=== PATIENT | female | born 1960 ===

== ENCOUNTER 2019-09-29 18:31 | Inpatient (IN) | payer MEDICAID, OTHER ==
[~2019-09-29] VITALS: Ht 170.2 cm; Wt 140.0 kg
--- NOTE | 2019-09-29 19:08 | NUR ---
daughter georgina [phone]
[2019-09-29] MEDS ORDERED: ACETAMINOPHEN 500 MG TABLET PO ONE (19:30)
[2019-09-29] MEDS ORDERED: ACETAMINOPHEN 500 MG TABLET ONE (19:35)
--- NOTE | 2019-09-29 19:35 | NUR ---
Pt here for new onset of cough fever and possibly reoccuring pneumonia. Pt reports she does not use oxygen and is requiring 4l at this time. Pt does not have hx of resp diseases. Pts lung were clear. Pt has bilateral eye draiange. Pt connected to monitors and call light in reach.
[2019-09-29 19:51] LABS: ALANINE AMINOTRANSFERASE 21 U/L (12-78); ALBUMIN 2.5 g/dL (3.4-5.0); ANION GAP 6 mmol/L (5-15); CHLORIDE 106 mmol/L (98-107)
[2019-09-29 19:53] LABS: ALKALINE PHOSPHATASE 151 U/L (45-117); BILIRUBIN,TOTAL 2.1 mg/dL (0.2-1.0); TOTAL PROTEIN 7.7 g/dL (6.4-8.2)
[2019-09-29 20:25] LABS: MEAN CORPUSCULAR HEMOGLOBIN 31.5 pg (27.0-34.8); MEAN CORPUSCULAR HGB CONC 32.5 g/dL (32.4-35.8); MEAN CORPUSCULAR VOLUME 96.9 fL (80-100); MEAN PLATELET VOLUME 9.9 fL (7.4-10.4); PLATELET COUNT 195 x10^3/uL (130-400); RED BLOOD COUNT 4.51 x10^6/uL (3.82-5.3)
[2019-09-29] MEDS ORDERED: AZITHROMYCIN 500 MG in SODIUM CHLORIDE 0.9% 250 ML IV ONE (20:30)
[2019-09-29] MEDS ORDERED: CEFTRIAXONE PMX 1GM/50ML 50 ML IV ONE (20:30)
[2019-09-29 20:32] LABS: MD YES
[2019-09-29 20:35] LABS: BANDS%(MANUAL) 3 % (0-7); BASOS% (MANUAL) 1 % (0-1); LYMPH#(MANUAL) 3.42 x10^3/uL (1-3.4); LYMPHS% (MANUAL) 17 % (22-44); MONOS#(MANUAL) 2.21 x10^3/uL (0.3-2.7); MONOS% (MANUAL) 11 % (2-9); SEG#(MANUAL) 13.67 x10^3/uL (1.8-6.8); SEGS% (MANUAL) 68 % (42-75)
[2019-09-29 20:38] LABS: <PLATELET ESTIMATE> ADEQUATE; <PLT MORPHOLOGY> NORMAL PLT MORPH; POLYCHROMASIA 1+; TOXIC GRAN 1+
--- NOTE | 2019-09-29 20:42 | NUR ---
pT TO CT, CT INFORMED PT IS COVID 19 RULE OUT.
[2019-09-29] MEDS ORDERED: CEFTRIAXONE PMX 1GM/50ML 50 ML ONE (20:46)
--- NOTE | 2019-09-29 21:30 | NUR ---
Pt medicated per emar, blood cultures collected. Pt placed back on monitors.
[2019-09-29] MEDS ORDERED: LISI-167 PO (22:16)
[2019-09-29] MEDS ORDERED: ASPI-515 PO (22:16)
--- NOTE | 2019-09-29 22:16 | NUR ---
Report called to [facility]
[2019-09-29 22:36] VITALS: BP 137/71
[2019-09-30 00:28] VITALS: BP 143/86
[2019-09-30] MEDS ORDERED: GUAIFENESIN/DM 200-20MG, 10ML UDC PO PRN (00:30)
[2019-09-30] MEDS ORDERED: LIDODERM 5% PATCH TD PRN (00:30)
[2019-09-30] MEDS ORDERED: hydrALAzine 20 MG/ML, 1ML IVPush PRN (00:30)
[2019-09-30] MEDS ORDERED: MELATONIN 5 MG TABLET PO PRN (00:30)
[2019-09-30] MEDS ORDERED: methylPREDNISolone SOD SUCC 40 MG/ML IVPush SCH (00:30)
[2019-09-30] MEDS ORDERED: ACETAMINOPHEN 325 MG TABLET PO PRN (00:30)
[2019-09-30] MEDS ORDERED: DOCUSATE 100 MG CAPSULE PO PRN (00:30)
[2019-09-30] MEDS: ENOXAPARIN 30 MG/0.3 ML SQ SCH ×2 (00:30→11:56)
[2019-09-30 09:15] VITALS: BP 138/69
[2019-09-30] MEDS: CEFTRIAXONE PMX 2GM/50ML 50 ML IV SCH (09:15)
[2019-09-30] MEDS: ZINC SULFATE 220 MG CAPSULE PO SCH (09:15)
[2019-09-30] MEDS: CHOLECALCIFEROL 1,000 UNIT TABLET PO SCH (09:15)
[2019-09-30] MEDS: LISINOPRIL 40 MG TABLET PO SCH (09:15)
[2019-09-30] MEDS: MELATONIN 5 MG TABLET PO SCH ×2 (09:15→20:25)
[2019-09-30] MEDS: ASPIRIN 81 MG TABLET EC PO SCH (09:15)
[2019-09-30] MEDS: DEXAMETHASONE 1 MG TABLET PO SCH ×2 (09:15→16:42)
[2019-09-30] MEDS ORDERED: CEFTRIAXONE PMX 1GM/50ML 50 ML IV SCH (09:30)
[2019-09-30] MEDS: ASCORBATE SODIUM 3,000 MG in SODIUM CHLORIDE 0.9% 250 ML IVPB SCH ×2 (11:56→18:40)
[2019-09-30] MEDS ORDERED: LIDODERM REMOVE PATCH NOTE XX PRN (12:00)
[2019-09-30] MEDS ORDERED: ENOXAPARIN 40 MG/0.4 ML SQ SCH (15:00)
[2019-09-30 16:44] VITALS: BP 118/76
[2019-09-30] MEDS: ENOXAPARIN 40 MG/0.4 ML SQ SCH (20:25)
[2019-09-30] MEDS: AZITHROMYCIN 500 MG in SODIUM CHLORIDE 0.9% 250 ML IV SCH ×2 (20:25→20:47)
[2019-09-30] MEDS: ENOXAPARIN 100 MG/ML SQ SCH (20:26)
[2019-09-30 20:32] VITALS: BP 118/78
[2019-10-01] MEDS: ASCORBATE SODIUM 3,000 MG in SODIUM CHLORIDE 0.9% 250 ML IVPB SCH ×3 (00:12→12:15)
[2019-10-01 00:15] VITALS: BP 119/79
[2019-10-01 05:49] LABS: MEAN CORPUSCULAR HEMOGLOBIN 31.8 pg (27.0-34.8); MEAN CORPUSCULAR HGB CONC 32.2 g/dL (32.4-35.8); MEAN CORPUSCULAR VOLUME 98.7 fL (80-100); MEAN PLATELET VOLUME 9.6 fL (7.4-10.4); PLATELET COUNT 216 x10^3/uL (130-400); RED BLOOD COUNT 4.29 x10^6/uL (3.82-5.3); RED CELL DISTRIBUTION WIDTH 14.4 % (9.6-15.2)
[2019-10-01 06:00] LABS: ANION GAP 4 mmol/L (5-15); CALCIUM 9.5 mg/dL (8.5-10.1); CHLORIDE 107 mmol/L (98-107); CREATININE 0.55 mg/dL (0.55-1.02)
[2019-10-01 06:38] LABS: MD YES
[2019-10-01 06:41] LABS: BAND#(MANUAL) 2.06 x10^3/uL; BANDS%(MANUAL) 10 % (0-7); LYMPH#(MANUAL) 1.85 x10^3/uL (1-3.4); LYMPHS% (MANUAL) 9 % (22-44); METAMYELOCYTES# (MANUAL) 0.62 x10^3/uL (0-0); METAMYELOCYTES% (MANUAL) 3 % (0-1); MONOS#(MANUAL) 0.82 x10^3/uL (0.3-2.7); MONOS% (MANUAL) 4 % (2-9); SEG#(MANUAL) 15.24 x10^3/uL (1.8-6.8); SEGS% (MANUAL) 74 % (42-75)
[2019-10-01 06:42] LABS: <PLATELET ESTIMATE> ADEQUATE; <PLT MORPHOLOGY> NORMAL PLT MORPH; POLYCHROMASIA 1+
[2019-10-01] MEDS: DEXAMETHASONE 1 MG TABLET PO SCH ×2 (07:28→17:11)
[2019-10-01 08:21] VITALS: BP 117/78
[2019-10-01] MEDS: CEFTRIAXONE PMX 2GM/50ML 50 ML IV SCH (08:28)
[2019-10-01] MEDS: ASPIRIN 81 MG TABLET EC PO SCH (08:29)
[2019-10-01] MEDS: ENOXAPARIN 100 MG/ML SQ SCH ×2 (08:29→21:09)
[2019-10-01] MEDS: LISINOPRIL 40 MG TABLET PO SCH (08:29)
[2019-10-01] MEDS: ENOXAPARIN 40 MG/0.4 ML SQ SCH ×2 (08:29→21:09)
[2019-10-01] MEDS: THIAMINE 100MG TABLET PO SCH ×2 (08:29→21:09)
[2019-10-01] MEDS: ZINC SULFATE 220 MG CAPSULE PO SCH (08:29)
[2019-10-01] MEDS: CHOLECALCIFEROL 1,000 UNIT TABLET PO SCH (09:00)
[2019-10-01 14:21] VITALS: BP 101/66
[2019-10-01] MEDS: ASCORBIC ACID 250 MG TAB PO SCH (17:11)
[2019-10-01 19:33] VITALS: BP 126/71
[2019-10-01] MEDS: AZITHROMYCIN 500 MG in SODIUM CHLORIDE 0.9% 250 ML IV SCH (21:09)
[2019-10-01] MEDS: MELATONIN 5 MG TABLET PO SCH (21:09)
[2019-10-02 00:19] VITALS: BP 131/77
[2019-10-02 05:23] LABS: MEAN CORPUSCULAR HEMOGLOBIN 31.7 pg (27.0-34.8); MEAN CORPUSCULAR HGB CONC 32.6 g/dL (32.4-35.8); MEAN CORPUSCULAR VOLUME 97.2 fL (80-100); MEAN PLATELET VOLUME 9.8 fL (7.4-10.4); PLATELET COUNT 243 x10^3/uL (130-400); RED BLOOD COUNT 4.33 x10^6/uL (3.82-5.3); RED CELL DISTRIBUTION WIDTH 14.7 % (9.6-15.2)
[2019-10-02 05:24] LABS: CHLORIDE 110 mmol/L (98-107)
[2019-10-02 05:32] LABS: ALANINE AMINOTRANSFERASE 22 U/L (12-78); ALBUMIN 2.3 g/dL (3.4-5.0); ALKALINE PHOSPHATASE 141 U/L (45-117); ANION GAP 3 mmol/L (5-15); BILIRUBIN,TOTAL 0.5 mg/dL (0.2-1.0); CALCIUM 9.3 mg/dL (8.5-10.1); CREATININE 0.52 mg/dL (0.55-1.02); TOTAL PROTEIN 6.8 g/dL (6.4-8.2)
[2019-10-02 05:43] LABS: MD YES
[2019-10-02 05:45] LABS: <PLATELET ESTIMATE> ADEQUATE; <PLT MORPHOLOGY> NORMAL PLT MORPH; BAND#(MANUAL) 1.89 x10^3/uL; BANDS%(MANUAL) 10 % (0-7); LYMPHS% (MANUAL) 9 % (22-44); MONOS#(MANUAL) 1.13 x10^3/uL (0.3-2.7); MONOS% (MANUAL) 6 % (2-9); MYELOCYTES# (MANUAL) 0.38 x10^3/uL (0-0); MYELOCYTES% (MANUAL) 2 % (0-0); SEGS% (MANUAL) 73 % (42-75)
[2019-10-02 05:46] LABS: <RBC MORPHOLOGY> NORMAL
[2019-10-02] MEDS: CEFTRIAXONE PMX 2GM/50ML 50 ML IV SCH (08:01)
[2019-10-02 08:05] VITALS: BP 145/88
[2019-10-02] MEDS: ZINC SULFATE 220 MG CAPSULE PO SCH (08:10)
[2019-10-02] MEDS: CHOLECALCIFEROL 1,000 UNIT TABLET PO SCH (08:11)
[2019-10-02] MEDS: DEXAMETHASONE 1 MG TABLET PO SCH (08:11)
[2019-10-02] MEDS: ENOXAPARIN 40 MG/0.4 ML SQ SCH (08:12)
[2019-10-02] MEDS: THIAMINE 100MG TABLET PO SCH (08:12)
[2019-10-02] MEDS: ASCORBIC ACID 250 MG TAB PO SCH (08:12)
[2019-10-02] MEDS: ASPIRIN 81 MG TABLET EC PO SCH (08:12)
[2019-10-02] MEDS: LISINOPRIL 40 MG TABLET PO SCH (08:12)
[2019-10-02] MEDS: ENOXAPARIN 100 MG/ML SQ SCH (08:12)
[2019-10-02 13:35] VITALS: BP 144/80
[2019-10-02] MEDS ORDERED: DEXAMETHASONE 4 MG TABLET ONE (17:21)
[2019-10-02] MEDS ORDERED: DEXAMETHASONE 4 MG TABLET PO SCH (17:44)
[2019-10-02] MEDS ORDERED: DIPHENHYDRAMINE 25 MG CAPSULE PO PRN (18:00)
[2019-10-02 18:30] VITALS: BP 124/77
[2019-10-02] MEDS: MELATONIN 5 MG TABLET PO SCH (20:46)
[2019-10-02] MEDS: AZITHROMYCIN 500 MG in SODIUM CHLORIDE 0.9% 250 ML IV SCH (21:39)
[2019-10-03 00:13] VITALS: BP 136/91
[2019-10-03 06:02] LABS: MEAN CORPUSCULAR HEMOGLOBIN 31.1 pg (27.0-34.8); MEAN CORPUSCULAR HGB CONC 31.9 g/dL (32.4-35.8); MEAN CORPUSCULAR VOLUME 97.5 fL (80-100); MEAN PLATELET VOLUME 9.8 fL (7.4-10.4); PLATELET COUNT 246 x10^3/uL (130-400); RED BLOOD COUNT 4.28 x10^6/uL (3.82-5.3); RED CELL DISTRIBUTION WIDTH 14.8 % (9.6-15.2)
[2019-10-03 06:03] LABS: CHLORIDE 110 mmol/L (98-107)
[2019-10-03 06:12] LABS: ALANINE AMINOTRANSFERASE 26 U/L (12-78); ALBUMIN 2.3 g/dL (3.4-5.0); ALKALINE PHOSPHATASE 125 U/L (45-117); ANION GAP 3 mmol/L (5-15); BILIRUBIN,TOTAL 0.4 mg/dL (0.2-1.0); CALCIUM 9.8 mg/dL (8.5-10.1); CREATININE 0.51 mg/dL (0.55-1.02); TOTAL PROTEIN 6.5 g/dL (6.4-8.2)
[2019-10-03 06:30] LABS: MD YES
[2019-10-03 06:32] LABS: BAND#(MANUAL) 0.95 x10^3/uL; BANDS%(MANUAL) 7 % (0-7); LYMPH#(MANUAL) 1.08 x10^3/uL (1-3.4); LYMPHS% (MANUAL) 8 % (22-44); METAMYELOCYTES# (MANUAL) 0.14 x10^3/uL (0-0); METAMYELOCYTES% (MANUAL) 1 % (0-1); MONOS#(MANUAL) 0.41 x10^3/uL (0.3-2.7); MONOS% (MANUAL) 3 % (2-9); MYELOCYTES# (MANUAL) 0.14 x10^3/uL (0-0); MYELOCYTES% (MANUAL) 1 % (0-0); SEGS% (MANUAL) 80 % (42-75)
[2019-10-03 06:33] LABS: <PLATELET ESTIMATE> ADEQUATE; <PLT MORPHOLOGY> NORMAL PLT MORPH; <RBC MORPHOLOGY> NORMAL
[2019-10-03] MEDS ORDERED: ACETAMINOPHEN 325 MG TABLET PO PRN (07:30)
[2019-10-03 07:56] VITALS: BP 124/79
[2019-10-03] MEDS: ASPIRIN 81 MG TABLET EC PO SCH (08:14)
[2019-10-03] MEDS: DOXYCYCLINE 100MG TABLET PO SCH ×2 (08:14→20:12)
[2019-10-03] MEDS: LISINOPRIL 40 MG TABLET PO SCH (08:14)
[2019-10-03] MEDS: AMOXICILLIN 500 MG CAPSULE PO SCH ×2 (08:14→20:12)
[2019-10-03] MEDS ORDERED: ENOXAPARIN 40 MG/0.4 ML SQ SCH (09:00)
[2019-10-03] MEDS: HEPARIN 5,000 UNITS/ML, 1ML SQ SCH ×3 (09:00→23:04)
[2019-10-03] MEDS ORDERED: AMOX-291 PO (10:26)
[2019-10-03] MEDS ORDERED: DOXY100T PO (10:26)
[2019-10-03 16:09] VITALS: BP 141/84
[2019-10-03 19:29] VITALS: BP 132/82
[2019-10-03] MEDS: MELATONIN 5 MG TABLET PO SCH (20:12)
[2019-10-04 00:40] VITALS: BP 123/75
[2019-10-04 07:10] VITALS: BP 119/77
[2019-10-04] MEDS: HEPARIN 5,000 UNITS/ML, 1ML SQ SCH (07:30)
[2019-10-04] MEDS: DOXYCYCLINE 100MG TABLET PO SCH (09:43)
[2019-10-04] MEDS: LISINOPRIL 40 MG TABLET PO SCH (09:43)
[2019-10-04] MEDS: ASPIRIN 81 MG TABLET EC PO SCH (09:44)
[2019-10-04] MEDS: AMOXICILLIN 500 MG CAPSULE PO SCH (09:44)
== END 2019-10-04 15:23 | disposition home or self-care (01) | DRG 720 ==
LOC: ED 21:21 → EDIP 21:46 → 3N 22:28
PROVIDERS: ADMIT Family Medicine; ATTEND Internal Medicine
DX: A41.9 Sepsis, unspecified organism (principal); J18.9 Pneumonia, unspecified organism; J96.01 Acute respiratory failure with hypoxia; Z68.42 Body mass index [BMI] 45.0-49.9, adult; N17.9 Acute kidney failure, unspecified; E66.01 Morbid (severe) obesity due to excess calories; Z20.828 Contact with and (suspected) exposure to other viral communicable diseases; E88.09 Other disorders of plasma-protein metabolism, not elsewhere classified; I10 Essential (primary) hypertension; Z87.01 Personal history of pneumonia (recurrent); Z90.49 Acquired absence of other specified parts of digestive tract
CPT/HCPCS: 36415; 71045; 71250; 76700; 78580; 80048; 80053; 82962; 83605; 83615; 84145; 85025; 85379; 86140; 87040; 87635; 96365; 96366; 96368; G0378; J0456; J0696; J1644; J1650; A9540; C9898; J2920; J7050; Q0163